=== PATIENT | female | born 1960 | race Hispanic/Latino ===

== ENCOUNTER 2023-08-20 13:28 | Outpatient (CLI) | payer BC | END 2023-08-20 13:29 | disposition home or self-care (01) | LOC: CSHRAD 13:28 | PROVIDERS: ATTEND Physician Assistant Surgical | DX: M54.50 Low back pain, unspecified (principal); M54.2 Cervicalgia; M79.671 Pain in right foot | CPT/HCPCS: 72040; 72072; 72100 ==